=== PATIENT | female | born 2000 | race Caucasian/White ===

== ENCOUNTER 2019-07-05 11:46 | Emergency (ER) | payer SELFPAY ==
[~2019-07-05] VITALS: Ht 165.1 cm; Wt 86.4 kg
[2019-07-05 11:55] VITALS: TEMP 98.1
[2019-07-05 12:47] LABS: BASO % 0.3 % (0.0-2.0); EOS # 0.1 (0.0-0.7); EOS % 1.1 % (0-4.0); GRAN # 3.7 (1.4-6.5); GRAN % 55.7 % (42.2-75.2); HEMATOCRIT 42.3 % (35.0-45.0); HEMOGLOBIN 13.8 g/dl (12.0-15.0); LYMPH # 2.4 (1.2-3.4); LYMPH % 35.7 % (20.0-51.0); MEAN CELL VOLUME 90 fl (80.0-95.0); MEAN CORPUSCULAR HEMOGLOBIN 29 pg (26.0-32.0); MEAN CORPUSCULAR HGB CONC 33 g/dl (33.0-37.0); MEAN PLATELET VOLUME 9.8 fl (7.4-10.4); MONO # 0.5 (0.1-0.6); MONO % 6.9 % (1.7-9.3); PLATELET COUNT 375 K/mm3 (130-400); RED BLOOD COUNT 4.71 M/mm3 (4.10-5.30); REDCELL DISTRIBUTION WIDTH-CV 12.7 % (11.5-14.5)
[2019-07-05 13:09] LABS: COLLECTION METHOD CLEAN CATCH
[2019-07-05 13:19] LABS: MUCOUS Present /lpf; PH 6 (5-8); SQUAMOUS EPITHELIAL 0-2 /hpf; URINE APPEARANCE Hazy; URINE BACTERIA None Seen /hpf; URINE BILIRUBIN Negative (NEGATIVE); URINE BLOOD 1+ (NEGATIVE); URINE COLOR Yellow; URINE GLUCOSE Negative (NEGATIVE); URINE KETONE Negative (NEGATIVE); URINE LEUKOCYTE ESTERASE Negative (NEGATIVE); URINE NITRATE Negative (NEGATIVE); URINE PROTEIN(semi-quant) Negative (NEGATIVE); URINE UROBILINOGEN Negative (NEGATIVE)
[2019-07-05] MEDS ORDERED: FLAGYL500 MG PO (14:31)
[2019-07-05 14:59] VITALS: BP 129/75; PULSE 85
== END 2019-07-05 14:59 | disposition home or self-care (01) ==
LOC: COL.ER 11:46
PROVIDERS: Physician Assistant
DX: N76.0 Acute vaginitis (principal); F41.9 Anxiety disorder, unspecified; B96.89 Other specified bacterial agents as the cause of diseases classified elsewhere; Z88.0 Allergy status to penicillin